=== PATIENT | female | born 1970 | race American Indian/Alaskan Native ===

== ENCOUNTER 2016-08-22 23:35 | Emergency (ER) | payer SELFPAY ==
[2016-08-23 00:17] LABS: Basophils % (Auto) 0.9 % (0.0-1.8); Eosinophils % (Auto) 2.5 % (0.0-4.3); Hematocrit 39.1 % (30.3-42.9); Hemoglobin 13.2 gm/dl (10.1-14.3); Mean Corpuscular HGB Conc 34 % (30-34); Mean Corpuscular Hemoglobin 32 pg (28-32); Mean Corpuscular Volume 93 fl (79-97); Platelet Count 171 K/mm3 (140-440); Red Blood Count 4.19 M/mm3 (3.65-5.03); White Blood Count 6.4 K/mm3 (4.5-11.0)
[2016-08-23 00:45] LABS: Alanine Aminotransferase 19 units/L (7-56); Albumin/Globulin Ratio 1.3 %; Alkaline Phosphatase 73 units/L (35-129); Anion Gap 18 mmol/L; BUN/Creatinine Ratio 16.66; Blood Urea Nitrogen 10 mg/dL (7-17); Calcium 8.9 mg/dL (8.4-10.2); Carbon Dioxide 22 mmol/L (22-30); Chloride 102.3 mmol/L (98-107); Glucose 92 mg/dL (65-100); Lipase 29 units/L (13-60); Potassium 3.7 mmol/L (3.6-5.0); Sodium 139 mmol/L (137-145); Total Protein 7.2 g/dL (6.3-8.2)
[2016-08-23 01:52] LABS: Bacteria,Urine 1+ /HPF (Negative); Bilirubin,Urine NEG (Negative); Blood,Urine NEG (Negative); Ketones,Urine NEG (Negative); Leukocyte Esterase,Urine NEG (Negative); Mucus,Urine FEW /HPF; Nitrite,Urine NEG (Negative); Protein,Urine <15 mg/dL mg/dL (Negative); Urobilinogen,Urine < 2.0 mg/dL (<2.0)
[2016-08-23 03:53] VITALS: BP 132/85
--- NOTE | 2016-08-23 05:03 | Emergency Department Report ---
HPI - General Chief Complaint: Abdominal Pain Time Seen by Provider: 08/23/16 03:40 - HPI HPI: This is a 46-year-old Afro-[place] female presents to the emergency department from home with 2 different complaints. First, the patient complains of a "knot " towards the medial portion of her left breast that she has noticed for the past week. The patient does say that she had a negative mammogram earlier within the past year but there is a significant family history with her mother requiring bilateral mastectomies. The area is slightly tender. Otherwise there is no skin color change. The second issue/complaint is a 1 week history of some vaginal irritation. There is very mild discharge. She denies any history of STDs. She is sexually active but is in a committed relationship. She tried some [id number] medication for his infection without any relief. She denies any fever, nausea, vomiting, dysuria, vaginal bleeding. No recent travel or sick contacts at home. ED Past Medical Hx - Past Medical History Previous Medical History?: Yes Hx Hypertension: Yes Additional medical history: Chest Pain/Palpitations - Surgical History Additional Surgical History: Partial Hyst. Back - Social History Smoking Status: Never Smoker Substance Use Type: None - Medications Home Medications: Home Medications Medication Instructions Recorded Confirmed Last Taken Type Fluconazole [Diflucan TAB] 150 mg PO ONCE #1 tablet 08/23/16 Unknown Rx Lisinopril [Zestril TAB] 10 mg PO QDAY #30 tablet 08/23/16 Unknown Rx ED Review of Systems ROS: Stated complaint: RT BREAST KNOT/VAG IRRITATION/CRAMPING Other details as noted in HPI Comment: All other systems reviewed and negative Constitutional: denies: chills, fever Eyes: denies: eye pain, eye discharge, vision change ENT: denies: ear pain, throat pain Respiratory: denies: cough, shortness of breath, wheezing Cardiovascular: denies: chest pain, palpitations Gastrointestinal: denies: abdominal pain, nausea, diarrhea Genitourinary: discharge, other (vaginal irritation). denies: dysuria, hematuria Musculoskeletal: denies: back pain, joint swelling, arthralgia Skin: denies: rash, change in color Neurological: denies: headache, weakness, paresthesias Physical Exam - Physical Exam Vital Signs: Vital Signs 08/22/16 08/23/16 23:56 03:49 Temperature 98.1 F 97.8 F Pulse Rate 68 64 Respiratory 14 16 Rate Blood Pressure 145/98 132/85 [Right] O2 Sat by Pulse 100 99 Oximetry Physical Exam: GENERAL: The patient is well-developed well-nourished. HEENT: Normocephalic. Atraumatic. Extraocular motions are intact. Patient has moist mucous membranes. Pupils equal reactive to light bilaterally. NECK: Supple. Trachea is midline. CHEST/LUNGS: Clear to auscultation. There is no respiratory distress noted. HEART/CARDIOVASCULAR: Regular. There is no tachycardia. There is no gallop rub or murmur. ABDOMEN: Abdomen is soft, nontender. Patient has normal bowel sounds. There is no abdominal distention. SKIN: Skin is warm and dry. NEURO: The patient is awake, alert, and oriented. The patient is cooperative. The patient has no focal neurologic deficits. The patient has normal speech. MUSCULOSKELETAL: There is no tenderness or deformity. There is no limitation range of motion. There is no evidence of acute injury. PELVIC: There is very mild white thick discharge seen in the posterior vaginal vault. Cervix is closed. No obvious cervical lesions. BREASTS: There is a firm area to the medial left breast about 9 or 10 o'clock position. It appears mobile and not adhered to the chest wall and feels as if it is about 3-4 cm in diameter. ED Course Vital Signs 08/22/16 08/23/16 23:56 03:49 Temperature 98.1 F 97.8 F Pulse Rate 68 64 Respiratory 14 16 Rate Blood Pressure 145/98 132/85 [Right] O2 Sat by Pulse 100 99 Oximetry ED Medical Decision Making - Lab Data Result diagrams: 08/22/16 23:56 08/22/16 23:56 - Medical Decision Making 46-year-old female presents with complaint of some type of a knot in the left medial breast. I did a breast exam and there is something that is firm but mobile at around the 9 or 10 o'clock position. I took the ultrasound and it does appear to be some type of a solid mass. Most likely it is fibrocystic but with the patient's history breast cancer has to be ruled out and the patient has been encouraged to follow-up with her primary care physician or [facility] or get a second mammography. Regarding the vaginal irritation and mild discharge, a wet prep was sent that was negative for BV and/or trichomoniasis. GNC was sent as well and if positive she will be treated. For now it appears consistent with a yeast infection and she will go on Diflucan. - Differential Diagnosis fibrocystic mass, breast cancer, BV, yeast infection, cervicitis Critical Care Time: No Critical care attestation.: If time is entered above; I have spent that time in minutes in the direct care of this critically ill patient, excluding procedure time. ED Disposition Clinical Impression: Breast lump on left side at 10 o'clock position, Vaginal irritation, Yeast infection Disposition: TO HOME OR SELFCARE Is pt being admited?: No Condition: Stable Instructions: Abdominal Pain (ED), Mammogram (ED), Vulvovaginal Candidiasis (ED ) Additional Instructions: Please follow-up with your [facility]NAGER or primary care physician regarding the yeast infection and the concern for a left-sided breast lump. Return to the emergency department with any worsening of your symptoms or any acute distress. Prescriptions: Fluconazole [Diflucan TAB] 150 mg PO ONCE #1 tablet Lisinopril [Zestril TAB] 10 mg PO QDAY #30 tablet Referrals: PRIMARY CARE, [Primary Care Provider] - [facility] Time of Disposition: 05:06
== END 2016-08-23 05:21 | disposition home or self-care (01) ==
LOC: ED 23:35
DX: N63 Unspecified lump in breast (principal); N89.8 Other specified noninflammatory disorders of vagina; B37.9 Candidiasis, unspecified; I10 Essential (primary) hypertension
CPT/HCPCS: 36415; 80053; 81001; 83690; 85025; 87210; 87591; 99284